=== PATIENT | female | born 1980 | race Two or more races ===

== ENCOUNTER 2023-09-30 18:22 | Emergency (ER) | payer OTHER, SELFPAY ==
[2023-09-30 18:38] VITALS: BP 115/75; PULSE 77; TEMP 36.6; O2SAT 97; BMI 35.4
--- NOTE | 2023-09-30 18:53 | XR_ITS ---
The [address] [address] Patient Name: ZAID MARINA MRN: [id number] date: 1980 Sex: F Assigned Patient Location: ED.MAIN Current Patient Location: ED.MAIN Accession/Order Number: [id number] Exam Date: 09/30/2023 19:03 Report Date: 09/30/2023 19:44 At the request of: ONEAL BARRIOS Procedure: XR knee RT 3V Exam: Radiographs: XR knee RT 3V Reason for exam: Knee effusion Comparison: None XR/XR knee RT 3V IMPRESSION: Moderate-sized right knee effusion. Minimal right knee degenerative change. Remainder the right knee radiographs is unremarkable. Electronically authenticated by: PRATIBHA HAIR Date: 09/30/2023 19:44
--- NOTE | 2023-09-30 18:54 | ED.LOWEXI1 ---
HPI HPI - Extremity Injury (Lower) General Chief Complaint: Extremity Injury, Lower Stated Complaint: LOWER EXTREMITY PAIN Time Seen by Provider: 09/30/23 18:46 Source: patient Mode of arrival: walk-in Limitations: no limitations History of Present Illness HPI Narrative: This patient here complaining of swelling over her right knee. She is asymptomatic on her left. She did not have any 1 specific event or injury where she felt pain and discomfort. Rather she is becoming quite active here recently jogging exercising lifting weights canoeing etc. She does not have any other joint involvement. She has not been running a fever. Just notices that the right knee is puffy and she has tried resting it for 2 weeks and is really not getting any better. She has not seen rotating equipment specialist but her daughters do see Dr. Parham here at this hospital. Related Data Home Medications ?Medication ?Instructions ?Recorded ?Confirmed No Known Home Medications 09/30/23 09/30/23 Allergies Allergy/AdvReac Type Severity Reaction Status Date / Time No Known Drug Allergies Allergy Verified 09/30/23 18:38 Opioid HPI Opioid Management Most Recent Pain and Opioid Data: No Data to Display Exam Narrative Exam Narrative: Very pleasant 43-year-old female she is in no distress. She says it does not bother her much when she is walking it is when she tries to sit. Problem focused examination shows overall well-hydrated well-nourished no other joint involvement or symptoms are noted. The left knee unrestricted range of motion. The right knee she does have 1+ joint effusion. There is no redness there is no evidence of clinical infection the overlying skin is normal. Stress testing the knee did not reproduce any symptomatology. She has no instability. The patella is not ballotable. The patella and the quadriceps tendon are intact and nontender. There is no fullness in the popliteal fossa Constitutional Vital Signs, click to edit/add: Last Vital Signs Temp 97.8 F 09/30/23 18:38 Pulse 77 09/30/23 18:38 Resp 20 09/30/23 18:38 BP 115/75 09/30/23 18:38 Pulse Ox 97 09/30/23 18:38 O2 Del Method Room Air 09/30/23 18:38 Course Vital Signs Vital signs: Vital Signs Temperature 97.8 F 09/30/23 18:38 Pulse Rate 77 09/30/23 18:38 Respiratory Rate 20 09/30/23 18:38 Blood Pressure 115/75 09/30/23 18:38 Pulse Oximetry 97 09/30/23 18:38 Oxygen Delivery Method Room Air 09/30/23 18:38 Temperature 97.8 F 09/30/23 18:38 Pulse Rate 77 09/30/23 18:38 Respiratory Rate 20 09/30/23 18:38 Blood Pressure 115/75 09/30/23 18:38 Pulse Oximetry 97 09/30/23 18:38 Oxygen Delivery Method Room Air 09/30/23 18:38 MDM - Extremity Injury (Lower) MDM Narrative Medical decision making narrative: Patient with marked increase in activity recently now has a small effusion on the right knee with an otherwise benign exam. We will get baseline x-rays. I do not believe she needs a knee immobilizer at this time we will recommend NSAIDs and following up with our orthopedic clinic on Wednesday. Discharge Plan Discharge Chief Complaint: Extremity Injury, Lower Clinical Impression: Effusion of knee joint right Patient Disposition: Still a Patient Prescriptions / Home Meds: No Action No Known Home Medications Print Language: Bulgarian Referrals: Physician,Non-Staff, MD [Primary Care Provider] - 1 week
--- NOTE | 2023-09-30 20:09 | ED_ITS ---
HPI HPI - Extremity Injury (Lower) General Chief Complaint: Extremity Injury, Lower Stated Complaint: LOWER EXTREMITY PAIN Time Seen by Provider: 09/30/23 18:46 Source: patient Mode of arrival: walk-in Limitations: no limitations History of Present Illness HPI Narrative: 43-year-old female presented for knee pain. She was initially seen by Dr. Lanza and signed out to me after discussing the case with him thoroughly. Please see her full history and physical exam. Related Data Previous Rx's ?Medication ?Instructions ?Recorded ibuprofen 800 mg tablet 800 mg PO Q8H PRN pain #20 tabs 09/30/23 nitrofurantoin 100 mg PO BID 7 days #14 caps 09/30/23 monohydrate/macrocrystals 100 mg capsule (Macrobid) Allergies Allergy/AdvReac Type Severity Reaction Status Date / Time No Known Drug Allergies Allergy Verified 09/30/23 18:38 Opioid HPI Opioid Management Most Recent Pain and Opioid Data: No Data to Display Exam Constitutional Vital Signs, click to edit/add: Last Vital Signs Temp 97.8 F 09/30/23 18:38 Pulse 77 09/30/23 18:38 Resp 20 09/30/23 18:38 BP 115/75 09/30/23 18:38 Pulse Ox 97 09/30/23 18:38 O2 Del Method Room Air 09/30/23 18:38 Course Vital Signs Vital signs: Vital Signs Temperature 97.8 F 09/30/23 18:38 Pulse Rate 77 09/30/23 18:38 Respiratory Rate 20 09/30/23 18:38 Blood Pressure 115/75 09/30/23 18:38 Pulse Oximetry 97 09/30/23 18:38 Oxygen Delivery Method Room Air 09/30/23 18:38 Temperature 97.8 F 09/30/23 18:38 Pulse Rate 77 09/30/23 18:38 Respiratory Rate 20 09/30/23 18:38 Blood Pressure 115/75 09/30/23 18:38 Pulse Oximetry 97 09/30/23 18:38 Oxygen Delivery Method Room Air 09/30/23 18:38 MDM - Extremity Injury (Lower) MDM Narrative Medical decision making narrative: X-ray shows effusion. Appointment already made to see Dr. Parham on Wednesday at 10:45 AM. Guilherme wrap applied, application checked by me and found to be appropriate, she is neurovascular intact. She was also placed on crutches. Leonel atment diagnosis and follow-up were discussed with the patient. Urinalysis also shows UTI and prescription was sent in for Macrobid. Differential Diagnosis Differential diagnosis: Likely acute internal derangement of knee and other (Effusion) Imaging Data Knee x-ray: Radiologist's impression: ITS Impressions Knee X-Ray 09/30/23 18:53 IMPRESSION: Moderate-sized right knee effusion. Minimal right knee degenerative change. Remainder the right knee radiographs is unremarkable. Electronically authenticated by: PRATIBHA HAIR Date: 09/30/2023 19:44 Discharge Plan Discharge Stand Alone Forms: Portal Instructions Chief Complaint: Extremity Injury, Lower Clinical Impression: Effusion of knee joint right Patient Disposition: Home, Self-Care Time of Disposition Decision: 20:06 Mode of Transportation: Private Vehicle Prescriptions / Home Meds: New ibuprofen 800 mg tablet 800 mg PO Q8H PRN (Reason: pain) Qty: 20 0RF nitrofurantoin monohyd/m-cryst [Macrobid] 100 mg capsule 100 mg PO BID 7 Days Qty: 14 0RF Rx Instructions: must administer with a meal/food Print Language: Yoruba Instructions: Swollen Knee Joint (ED) Additional Instructions: See Dr. Parham on October 03 at 10:45 AM Referrals: Physician,Non-Staff, [Physician] - 1 week Discharge Date/Time: 09/30/23 20:26
[2023-09-30 20:26] VITALS: BP 136/80; PULSE 71; O2SAT 98
[2023-09-30 20:28] LABS: Bilirubin Urine NEGATIVE (NEGATIVE); Blood Urine MODERATE (NEGATIVE); Clarity Urine CLEAR (CLEAR); Color Urine YELLOW (YELLOW); Glucose Urine UA NEGATIVE (NEGATIVE); Ketones Urine TRACE mg/dL (NEGATIVE); Leukocyte Esterase Urine TRACE (NEGATIVE); Nitrite Urine NEGATIVE (NEGATIVE); Protein Urine TRACE mg/dL (NEG/TRACE); pH Urine 7.5 (5.0-9.0)
[2023-09-30 20:40] LABS: Bacteria Urine NONE SEEN #/HPF (NONE SEEN); Calcium Oxalate Crystals Urine MODERATE; Cast Seen? NONE SEEN #/LPF (NONE SEEN); Crystals Seen? Seen #/HPF (None Seen); Mucus Urine LARGE (NONE SEEN); RBC Urine 20-50 #/HPF (0-2); Squamous Epithelial Cell Urine MANY #/LPF (NONE/RARE); Urine Culture Indicated YES; WBC Urine >100 #/HPF (NONE SEEN)
== END 2023-09-30 20:26 | disposition home or self-care (01) ==
PROVIDERS: Emergency Provider Emergency Medicine; PCP Family Medicine
DX: M25.461 Effusion, right knee (principal)
CPT/HCPCS: 73562; 81001; 87086; 99283

== ENCOUNTER 2023-10-25 15:48 | Outpatient (OUT) | payer OTHER, SELFPAY ==
--- NOTE | 2023-10-25 15:51 | MR_ITS ---
[place] [id number] Patient Name: ZAID MARINA MRN: [id number] date: 1980 Sex: F Assigned Patient Location: MRI Current Patient Location: Accession/Order Number: [id number] Exam Date: 10/25/2023 16:00 Report Date: 10/26/2023 15:42 At the request of: JEN MEDINA Procedure: MR knee RT wo con EXAMINATION: MR knee RT wo con HISTORY: Acute Pain Of Right Knee, Effusion Right Knee ; medial knee pain; no known injury COMPARISON: No relevant comparison available. TECHNIQUE: A complete multi-planar MRI was performed. FINDINGS: MEDIAL COMPARTMENT MEDIAL MENISCUS: No visible tear or significant degeneration. CARTILAGE: No visible defect. BONES: No marrow pathology, fracture, or significant arthropathy. MCL AND MEDIAL CAPSULE: Normal medial collateral ligament and medial capsule. LATERAL COMPARTMENT LATERAL MENISCUS: No visible tear or significant degeneration. CARTILAGE: No visible defect. BONES: No marrow pathology, fracture, or significant arthropathy. LCL/POSTEROLAT COMPLEX: Normal lateral collateral ligament, fascicles, lateral capsule and ligaments. ANTERIOR COMPARTMENT PATELLA: No marrow pathology, fracture, or significant arthropathy. CARTILAGE: 5 mm wide by 10 mm cephalad-caudad segment of absent cartilage overlying the lateral margin of the intercondylar groove. TENDONS: Normal. EFFUSION: Large joint effusion. ACL: Normal appearing ligament. PCL: Normal appearing ligament. MENISCOFEMORAL: Normal meniscofemoral ligaments. OTHER: Negative. MR/MR knee RT wo con IMPRESSION: 1. 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 No appreciable corresponding defect/injury involving the lateral facet of the patella. 2. Large joint effusion. Electronically authenticated by: LG DIAZ Date: 10/26/2023 15:42
== END 2023-10-25 15:49 | disposition home or self-care (01) ==
LOC: MRI 15:48
PROVIDERS: PCP Family Medicine; Visit Provider Physician Assistant
DX: M25.561 Pain in right knee (principal); M25.461 Effusion, right knee
CPT/HCPCS: 73721

== ENCOUNTER 2024-05-16 19:08 | Emergency (ER) | payer OTHER, SELFPAY ==
[2024-05-16 19:18] VITALS: BP 154/85; PULSE 129; TEMP 39; O2SAT 93; BMI 37.2
[2024-05-16 19:51] LABS: Influenza Virus A Antigen Positive; Influenza Virus B Antigen Negative; Internal Control Within Normal Limits; SARS-CoV-2 Ag NEGATIVE (NEGATIVE)
[2024-05-16 20:59] VITALS: PULSE 123; TEMP 36.9; O2SAT 96
--- NOTE | 2024-05-16 21:03 | ED.GENADUL1 ---
HPI HPI - General Adult General Chief complaint: Fever Stated complaint: Upper Respiratory Infection Time Seen by Provider: 05/16/24 20:59 Source: patient Mode of arrival: walk-in Limitations: no limitations History of Present Illness HPI narrative: 43-year-old female presents to the emergency department for cough and congestion and headache and some bodyaches. She has been sick since yesterday. No vomiting or diarrhea. Related Data Home Medications ?Medication ?Instructions ?Recorded ?Confirmed No Known Home Medications 05/16/24 05/16/24 Allergies Allergy/AdvReac Type Severity Reaction Status Date / Time No Known Drug Allergies Allergy Verified 05/16/24 19:17 Opioid HPI Opioid Management Most Recent Opioid Data: No Data to Display Review of Systems ROS Narrative A ten point review of systems is negative except as noted above. PFSH PFSH Social History Little interest or pleasure in doing things: not at all Feeling down, depressed, or hopeless: not at all Exam Narrative Exam Narrative: Nurses note and vital signs reviewed and patient is not hypoxic. General: The patient appears well and in no apparent distress. Patient is resting comfortably on cart. Skin: Warm, dry, no pallor noted. There is no rash noted. Head: Normocephalic, atraumatic Eye: Normal conjunctiva, no drainage Ears, Nose, Mouth, and Throat: oral mucosa is moist. Nares patent. She has some nasal congestion. Cardiovascular: Regular Rate and Rhythm, mildly tachycardic Respiratory: Patient is in no distress, no accessory muscle use, lungs are clear to auscultation, no wheezing, rales or rhonchi. Good air movement present Back: non-tender GI: Soft and nontender Musculoskeletal: The patient has no evidence of calf tenderness, no pitting edema, symmetrical pulses noted bilaterally Neurological: A&O, normal speech Psychiatric: Cooperative Constitutional Vital Signs, click to edit/add: Last Vital Signs Temp 98.4 F 05/16/24 20:59 Pulse 123 H 05/16/24 20:59 Resp 20 05/16/24 20:59 BP 154/85 H 05/16/24 19:18 Pulse Ox 96 05/16/24 20:59 O2 Del Method Room Air 05/16/24 19:18 Course Vital Signs Vital signs: Vital Signs Temperature 102.2 F H 05/16/24 19:18 Pulse Rate 129 H 05/16/24 19:18 Respiratory Rate 19 05/16/24 19:18 Blood Pressure 154/85 H 05/16/24 19:18 Pulse Oximetry 93 L 05/16/24 19:18 Oxygen Delivery Method Room Air 05/16/24 19:18 Temperature 98.4 F 05/16/24 20:59 Pulse Rate 123 H 05/16/24 20:59 Respiratory Rate 20 05/16/24 20:59 Blood Pressure 154/85 H 05/16/24 19:18 Pulse Oximetry 96 05/16/24 20:59 Oxygen Delivery Method Room Air 05/16/24 19:18 Medical Decision Making MDM Narrative Medical decision making narrative: Testing is positive for influenza. Symptomatic care was recommended including Tylenol Motrin. Treatment diagnosis and follow-up were discussed with the patient. Lab Data Lab results reviewed: Yes I reviewed the patient's lab results Labs: Lab Results 05/16/24 Range/Units 19:26 Influenza Type A Ag Positive A Influenza Type B Ag Negative SARS-CoV-2 Ag (CV2AG) Negative (NEGATIVE) Discharge Plan Discharge Chief Complaint: Fever Clinical Impression: Influenza Patient Disposition: Home, Self-Care Time of Disposition Decision: 21:02 Condition: Good Mode of Transportation: Private Vehicle Prescriptions / Home Meds: No Action No Known Home Medications Print Language: Tunisian Instructions: Influenza (ED) Referrals: Tayler Power MD [Primary Care Provider] - 1 week
[2024-05-16 21:10] VITALS: PULSE 116
--- NOTE | 2024-05-18 07:13 | PC.NURSE ---
Pt contacts this nurse and is inquiring about Tamiflu and something for cough. Symptoms started Wednesday and she is outside window for Tamiflu. Dr. Hoyt agrees to call in [facility] with codiene for the cough.
== END 2024-05-16 21:11 | disposition home or self-care (01) ==
PROVIDERS: Emergency Provider Emergency Medicine; PCP Family Medicine
DX: J10.1 Influenza due to other identified influenza virus with other respiratory manifestations (principal)
CPT/HCPCS: 87804; 87811; 99284